=== PATIENT | male | born 1960 | race Caucasian/White ===

== ENCOUNTER 2017-02-23 18:26 | Inpatient (IN) | payer MEDICARE, OTHER ==
[~2017-02-23 18:26] MED LIST: METOPROLOL TARTRATE 5 MG/5 ML VIAL IVP ONE
[2017-02-23] MEDS ORDERED: HEPARIN SODIUM,PORCINE 5,000 UNIT/ML 1 ML VIAL IV ONE (18:28)
[2017-02-23] MEDS ORDERED: SODIUM CHLORIDE 0.9% 1,000 ML IV STA (18:28)
[2017-02-23] MEDS ORDERED: HEPARIN SODIUM,PORCINE 5,000 UNIT/ML 1 ML VIAL IV PRN (18:28)
[2017-02-23] MEDS ORDERED: ASPIRIN 81 MG CHEW PO STA (18:28)
[2017-02-23] MEDS ORDERED: NITROGLYCERIN SL TABS 0.4 MG TAB SUBLINGUAL PRN ×2 (18:28→19:57)
[2017-02-23] MEDS ORDERED: MORPHINE SULFATE 4 MG/ML SYRINGE IV PRN (18:28)
--- NOTE | 2017-02-23 18:31 | ED ---
General Adult HPI - General Stated complaint: STEMI Time Seen by Provider: 02/23/17 18:28 Source: RN notes reviewed, old records reviewed - History of Present Illness Initial comments: This is a 57-year-old male here for chest pain severe anterior chest pain. Patient's transfer to the ER for evaluation by EMS for positive EKG changes. Patient has history of high blood pressure, patient having severe anterior chest pain at this time shortness of breath and diaphoresis. - Related Data Home Medications Medication Instructions Recorded Confirmed Omeprazole 20 mg PO DAILY 02/23/17 02/23/17 Previous Rx's Medication Instructions Recorded Atorvastatin [Lipitor] 80 mg PO HS #90 tab 08/16/14 Nitroglycerin Sl Tabs [Nitrostat] 0.4 mg SUBLINGUAL Q5M PRN #25 tab 08/16/14 Aspirin 325 mg PO DAILY #30 tab 02/26/17 Atorvastatin [Lipitor] 80 mg PO HS #30 tab 02/26/17 LORazepam [Ativan] 1 mg PO TID PRN #20 tab 02/26/17 Lisinopril [Zestril] 10 mg PO DAILY #30 tab 02/26/17 Metoprolol Tartrate [Lopressor] 25 mg PO TID #90 tab 02/26/17 Prasugrel [Effient] 10 mg PO DAILY #30 tab 02/26/17 Allergies Allergy/AdvReac Type Severity Reaction Status Date / Time codeine Allergy Itching Verified 02/23/17 19:15 Review of Systems ROS Statement: Those systems with pertinent positive or pertinent negative responses have been documented in the HPI. ROS Other: All systems not noted in ROS Statement are negative. Past Medical History Past Medical History: GERD/Reflux, Hypertension, Pneumonia Additional Past Medical History / Comment(s): chronic back pain,MURMUR LONG TIME AGO, PSORIASES,PT STATED THAT HIS BP RUNS HIGH LIKE WHEN HE SEE'S THE DR OR ANXIOUS ABOUT SOMETHING BUT STATED NOT TAKING ANY MEDS FOR IT. 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 History of Any Multi-Drug Resistant Organisms: None Reported Past Surgical History: No Surgical Hx Reported Additional Past Surgical History / Comment(s): RT ROTATOR CUFF SX, LT KNEE SX AFTER [facility] Past Anesthesia/Blood Transfusion Reactions: No Reported Reaction Past Psychological History: No Psychological Hx Reported Smoking Status: Current every day smoker Past Alcohol Use History: None Reported Additional Past Alcohol Use History / Comment(s): STARTED SMOKING AT AGE 17- SMOKES 1 PPD DOWN FROM 2 PPD Past Drug Use History: Marijuana - Past Family History Father Family Medical History: Cancer Additional Family Medical History / Comment(s): MESOTHILIOMA Mother Family Medical History: Cancer Additional Family Medical History / Comment(s): LUNG CA General Exam General appearance: alert, in no apparent distress, anxious Head exam: Present: atraumatic, normocephalic, normal inspection Eye exam: Present: normal appearance, PERRL, EOMI. Absent: scleral icterus, conjunctival injection, periorbital swelling ENT exam: Present: normal exam, mucous membranes moist Neck exam: Present: normal inspection. Absent: tenderness, meningismus, lymphadenopathy Respiratory exam: Present: normal lung sounds bilaterally. Absent: respiratory distress, wheezes, rales, rhonchi, stridor Cardiovascular Exam: Present: regular rate, normal rhythm, normal heart sounds. Absent: systolic murmur, diastolic murmur, rubs, gallop, clicks GI/Abdominal exam: Present: soft, normal bowel sounds. Absent: distended, tenderness, guarding, rebound, rigid Extremities exam: Present: normal inspection, full ROM, normal capillary refill. Absent: tenderness, pedal edema, joint swelling, calf tenderness Back exam: Present: normal inspection Neurological exam: Present: alert, oriented X3, CN II-XII intact Psychiatric exam: Present: normal affect, normal mood Skin exam: Present: warm, dry, intact, normal color. Absent: rash Course Vital Signs 02/23/17 02/23/17 02/23/17 18:33 18:35 18:40 Temperature 98.0 F Pulse Rate 94 90 88 Respiratory 20 20 19 Rate Blood Pressure 123/67 119/76 124/84 O2 Sat by Pulse 98 97 Oximetry 02/23/17 02/23/17 02/23/17 18:45 18:49 18:55 Temperature Pulse Rate 85 89 91 Respiratory 20 20 20 Rate Blood Pressure 123/74 123/78 132/84 O2 Sat by Pulse 100 100 99 Oximetry - Reevaluation(s) Reevaluation #1: CODE STEMI was paged, cardiology evaluate patient in emergency room EKG Findings - EKG Comments: EKG Findings:: EKG shows normal sinus a rate of 91, [place] 166, QRS 84, QTC 423 Medical Decision Making - Medical Decision Making 57 male here for evaluation of chest pain, EKG positive for stabbing, 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
[2017-02-23 18:39] LABS: CH 31.3; CHCM 34.8; HCT 42.8 % (39.0-53.0); HDW 2.54; HGB 14.6 gm/dL (13.0-17.5); MCH 30.8 pg (25.0-35.0); MCHC 34.1 g/dL (31.0-37.0); MCV 90.3 fL (80.0-100.0); Mean Platelet Volume 7.7; RBC 4.74 m/uL (4.30-5.90); WBC 14.8 k/uL (3.8-10.6)
--- NOTE | 2017-02-23 18:41 | P.CRDCN ---
History of Present Illness Consult date: 02/23/17 History of present illness: This is a 57-year-old gentleman with history of ischemic heart disease with a previous stent placement in the right coronary artery in the setting of acute myocardial infarction done in July 2014. And had a 2 vessel disease at the time, with about 50-60% as of the circumflex. Patient has been on medical therapy and has been doing well. About an hour prior to arrival here patient started having chest pain associated with sweating and shortness of breath. Patient was brought by EMS to the hospital. EKG showed evidence of acute infero -posterior myocardial infarction. Patient is advised to have a cardiac catheterization for definitive diagnosis and further intervention as needed. Patient is also hypotensive. Review of Systems Not obtained Past Medical History Past Medical History: GERD/Reflux, Hypertension, Pneumonia Additional Past Medical History / Comment(s): chronic back pain,MURMUR LONG TIME AGO, PSORIASES,PT STATED THAT HIS BP RUNS HIGH LIKE WHEN HE SEE'S THE DR OR ANXIOUS ABOUT SOMETHING BUT STATED NOT TAKING ANY MEDS FOR IT. 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 History of Any Multi-Drug Resistant Organisms: None Reported Past Surgical History: No Surgical Hx Reported Additional Past Surgical History / Comment(s): RT ROTATOR CUFF SX, LT KNEE SX AFTER [facility] Past Anesthesia/Blood Transfusion Reactions: No Reported Reaction Past Psychological History: No Psychological Hx Reported Smoking Status: Current every day smoker Past Alcohol Use History: None Reported Additional Past Alcohol Use History / Comment(s): STARTED SMOKING AT AGE 17- SMOKES 1 PPD DOWN FROM 2 PPD Past Drug Use History: Marijuana - Past Family History Father Family Medical History: Cancer Additional Family Medical History / Comment(s): MESOTHILIOMA Mother Family Medical History: Cancer Additional Family Medical History / Comment(s): LUNG CA Medications and Allergies Allergies Allergy/AdvReac Type Severity Reaction Status Date / Time codeine Allergy Itching Verified 08/14/14 17:20 Physical Exam GENERAL EXAM: Patient is alert and oriented and appears to be in any severe distress. Sweaty HEENT: Normocephalic. Normal reaction of pupils, equal size, normal range of extraocular motion. No erythema or exudates in the throat. NECK: No masses, no nuchal rigidity. CHEST: No chest wall deformity. LUNGS: Diminished breath sounds HEART: S1 and S2 normal . Distant heart sounds ABDOMEN: Soft SKIN: No rashes CENTRAL NERVOUS SYSTEM: No focal deficits. EXTREMITIES: No cyanosis, clubbing or edema. Results Current Medications Generic Name Dose Route Start Last Admin Trade Name Freq PRN Reason Stop Dose Admin Aspirin 325 mg 02/24/17 09:00 Aspirin PO DAILY [facility] Atorvastatin Calcium 80 mg 02/24/17 09:00 Lipitor PO DAILY [facility] Heparin Sodium (Porcine) 0 unit 02/23/17 18:28 Heparin IV Q6HR PRN Low PTT Protocol Heparin Sodium/Dextrose 25,000 500 mls @ 0 mls/hr 02/23/17 18:30 unit/ IV Solution IV .Q0M PRINCESS Protocol 12 UNITS/KG/HR Sodium Chloride 1,000 mls @ 20 mls/hr 02/23/17 18:28 Saline 0.9% IV 02/24/17 18:27 .Q24H STA Morphine Sulfate 4 mg 02/23/17 18:28 Morphine Sulfate (Inj) IV Q5M PRN Chest Pain Nitroglycerin 0.4 mg 02/23/17 18:28 Nitrostat SUBLINGUAL Q5M PRN Chest Pain EKG Interpretations (text) Sinus rhythm with evidence of acute inferior posterior wall microinfarction Assessment and Plan (1) Old inferior wall myocardial infarction Status: Acute (2) STEMI (ST elevation myocardial infarction) Status: Acute (3) Exogenous obesity Status: Acute (4) Smoking Status: Acute Plan: Proceed with a primary cardiac catheterization and the possible stent placement. Meanwhile continue with the and the platelet agents and heparin.
[2017-02-23 18:47] LABS: ALT 53 U/L (21-72); AST 36 U/L (17-59); Alkaline Phosphatase 74 U/L (38-126); Anion Gap 10 mmol/L; Blood Urea Nitrogen 11 mg/dL (9-20); Calcium 8.8 mg/dL (8.4-10.2); Carbon Dioxide 22 mmol/L (22-30); Chloride 109 mmol/L (98-107); Glucose 122 mg/dL (74-99); Non-African American GFR(MDRD) 58 (>60 ml/min/1.73 sqM); Potassium 3.6 mmol/L (3.5-5.1); Sodium 141 mmol/L (137-145); Total Bilirubin 1.1 mg/dL (0.2-1.3); Total Protein 6.7 g/dL (6.3-8.2)
--- NOTE | 2017-02-23 18:53 | XR ---
EXAMINATION TYPE: XR chest 1V portable DATE OF EXAM: 02/23/2017 COMPARISON: 08/14/2014 HISTORY: Chest pain TECHNIQUE: Single frontal view of the chest is obtained. FINDINGS: There is no heart failure nor confluent pneumonic infiltrate. There is a small calcified g ranuloma in the left lower lobe. There are chest leads. Costophrenic angles are clear. IMPRESSION: No active cardiopulmonary disease. There is improved inspiration compared to old exam.
[2017-02-23 18:54] LABS: Prothrombin Time 10.3 sec (9.0-12.0)
[2017-02-23 18:58] LABS: Partial Thromboplastin Time 21.9 sec (22.0-30.0)
[2017-02-23] MEDS ORDERED: SODIUM CHLORIDE 0.9% 500 ML IV ONE (19:10)
[2017-02-23] MEDS ORDERED: HYDROmorphone 2 MG/ML 1 ML SYRINGE ONE (19:10)
[2017-02-23] MEDS ORDERED: HYDROmorphone 2 MG/ML 1 ML SYRINGE IV ONE (19:13)
[2017-02-23] MEDS ORDERED: LIDOCAINE 2% INJ 20 MG/ML SQ ONE (19:15)
[2017-02-23] MEDS ORDERED: BIVALIRUDIN BOLUS 250 MG/50 ML IV ONE (19:25)
[2017-02-23] MEDS ORDERED: METOPROLOL TARTRATE 5 MG/5 ML VIAL IVP ONE (19:26)
[2017-02-23] MEDS ORDERED: BIVALIRUDIN 250 MG in SODIUM CHLORIDE 0.9% 50 ML IV ONE (19:26)
--- NOTE | 2017-02-23 19:37 | P.PCN ---
Date of Procedure: 02/23/17 Preoperative Diagnosis: Acute inferior wall NM Postoperative Diagnosis: Total occlusion of the RCA and moderate stable disease in the circumflex Procedure(s) Performed: Left heart catheterization without left ventriculography Implants: Indications for Procedure: Operative Findings: Description of Procedure: HISTORY: This is a 57-year-old gentleman with history of previous inferior wall NM for which he had a stent placement in 2015 is admitted through the emergency room with prolonged chest pain and evidence of inferior wall NM. Patient is advised to have a cardiac cath with the intention of primary intervention. CONSENT:I have discussed the risks, benefits and alternative therapies for the above-mentioned procedure and for both sedation/analgesia as well as necessary blood product administration, if indicated, as they pertain to this patient. The patient has indicated understanding and acceptance of the risks and procedures discussed. PROCEDURE: Patient was brought to the lab in a fasting state. Patient was given some IV sedation. The right groin is infiltrated with lidocaine and right femoral artery was entered using Seldinger technique. A 6-Georgian catheter was left in place and selective coronary arteriography and left ventriculography was performed. Patient tolerated the procedure well. Femoral angiogram was performed and Angio-Seal was applied for hemostasis. No immediate complications were noted and patient was transferred to [facility] in a stable condition Conscious Sedation: Patient is given IV Dilaudid 1 mg. Patient received sedation in the emergency room. The duration is about 15 minutes SELECTIVE CORONARY ARTERIOGRAPHY: LEFT MAIN: Normal length with mild distal disease before the origin of the circumflex and LAD. THE LEFT ANTERIOR DESCENDING CORONARY ARTERY: This is a fair caliber vessel giving rise to 2 small diagonal and septal branches. The LAD has mild diffuse disease without any significant focal lesions. He is a dominant vessel which wraps around the apex. THE LEFT CIRCUMFLEX AND IS CORONARY ARTERY: This is small nondominant vessel with intermittent disease in the proximal portion THE RIGHT CORONARY ARTERY: , Totally occluded within the stent in the proximal area LEFT VENTRICULOGRAPHY: Performed FINAL IMPRESSION: Total occlusion of the RCA. Moderate disease in the circumflex. Mild disease in the LAD PLAN: Stent placement of the RCA. Being done by Dr. Hawkins PROGNOSIS: Guarded
[2017-02-23 19:40] LABS: Nucleated Red Blood Cells 0 /100 WBC (0-0); Total Cells Counted 100
[2017-02-23 19:41] LABS: Large Platelets Present; Manual Review Performed; RBC Morphology Normal
[2017-02-23 19:45] LABS: Creatine Kinase MB 1.9 ng/mL (0.0-2.4)
[2017-02-23] MEDS ORDERED: PRASUGREL 10 MG TAB ONE (19:46)
[2017-02-23] MEDS ORDERED: IOHEXOL 350 MG/ML 125ML BOTTLE INJ ONE (19:48)
[2017-02-23] MEDS ORDERED: PRASUGREL 10 MG TAB PO ONE (19:48)
[2017-02-23] MEDS ORDERED: ZOLPIDEM 5 MG TAB PO PRN (19:57)
[2017-02-23] MEDS ORDERED: RX INFO: IV CONTRAST WAS GIVEN 1 EACH MISC MISCELLANE PRN (19:57)
[2017-02-23] MEDS ORDERED: MAG HYDROX/AL HYDROX/SIMETH 30 ML CUP PO PRN (19:57)
[2017-02-23] MEDS ORDERED: ATROPINE SULFATE 0.1 MG/ML 10ML SYRINGE IV PRN (19:57)
[2017-02-23] MEDS ORDERED: SODIUM CHLORIDE 0.9% 1,000 ML IV SCH (20:00)
[2017-02-23 20:36] LABS: Glucose,Whole Blood 120 mg/dL (75-99)
[2017-02-23] MEDS: HEPARIN SODIUM,PORCINE/D5W PMX 25,000 UNIT in DEXTROSE/WATER 1 500ML.BAG IV SCH (21:31)
[2017-02-23] MEDS: ATORVASTATIN 80 MG TAB PO SCH (22:24)
[2017-02-24 01:42] LABS: Creatine Kinase MB 89.5 ng/mL (0.0-2.4); Troponin I 39.9 ng/mL (0.000-0.034)
[2017-02-24 05:18] LABS: Basophils # (A) 0.1 k/uL (0-0.2); Basophils % (A) 1 %; CHCM 33.7; Eosinophils # (A) 0.1 k/uL (0-0.7); Eosinophils % (A) 1 %; HCT 40.3 % (39.0-53.0); HGB 13.4 gm/dL (13.0-17.5); Luc # (Auto) 0.21; Luc % (Auto) 2; Lymphocytes % (A) 29 %; MCH 30.7 pg (25.0-35.0); MCHC 33.2 g/dL (31.0-37.0); MCV 92.5 fL (80.0-100.0); Mean Platelet Volume 7.8; Monocytes # (A) 0.6 k/uL (0-1.0); Monocytes % (A) 5 %; Neutrophils # (A) 6.4 k/uL (1.3-7.7); Neutrophils % (A) 62 %; RBC 4.36 m/uL (4.30-5.90); RDW 14.3 % (11.5-15.5); WBC 10.2 k/uL (3.8-10.6); WBC (Perox) 10.66
[2017-02-24 05:27] LABS: Cholesterol 140 mg/dL (<200); Glucose 105 mg/dL (74-99)
[2017-02-24 05:28] LABS: Anion Gap 9 mmol/L; Blood Urea Nitrogen 10 mg/dL (9-20); Calcium 8.5 mg/dL (8.4-10.2); Carbon Dioxide 21 mmol/L (22-30); Chloride 110 mmol/L (98-107); HDL Cholesterol 34 mg/dL (40-60); Non-African American GFR(MDRD) >60 (>60 ml/min/1.73 sqM); Potassium 3.7 mmol/L (3.5-5.1); Sodium 140 mmol/L (137-145)
[2017-02-24] MEDS ORDERED: Potassium Replacement Protocol 1 EACH MISC MISCELLANE PRN (05:37)
[2017-02-24] MEDS ORDERED: POTASSIUM CHLORIDE ER 20 MEQ TAB.ER PO SCH (06:00)
[2017-02-24] MEDS: ASPIRIN 325 MG TAB PO SCH (08:51)
[2017-02-24] MEDS: LISINOPRIL 10 MG TAB PO SCH (08:52)
[2017-02-24] MEDS: PRASUGREL 10 MG TAB PO SCH (08:52)
[2017-02-24] MEDS: PANTOPRAZOLE 40 MG TABLET PO SCH (08:52)
[2017-02-24] MEDS ORDERED: METOPROLOL TARTRATE 25 MG TAB PO SCH (09:00)
[2017-02-24] MEDS ORDERED: ATORVASTATIN 80 MG TAB PO SCH (09:00)
[2017-02-24] MEDS ORDERED: Magnesium Replacement Protocol 1 EACH MISC MISCELLANE PRN (13:14)
[2017-02-24] MEDS: MAGNESIUM SULFATE-D5W PMX 1 GM in DEXTROSE/WATER 1 100ML.BAG IVPB SCH ×2 (14:26→15:43)
[2017-02-24] MEDS: METOPROLOL TARTRATE 25 MG TAB PO SCH ×2 (15:56→21:01)
[2017-02-24] MEDS: HEPARIN SODIUM,PORCINE/D5W PMX 25,000 UNIT in DEXTROSE/WATER 1 500ML.BAG IV SCH (17:34)
--- NOTE | 2017-02-24 17:34 | ECHOF ---
Referral Reason:stemi MEASUREMENTS -------- HEIGHT: 152.4 cm WEIGHT: 103.9 kg BP: 151/55 RVIDd: 2.7 cm (< 3.3) IVSd: 1.2 cm (0.6 - 1.1) LVIDd: 3.9 cm (3.9 - 5.3) LVPWd: 1.7 cm (0.6 - 1.1) IVSs: 1.5 cm LVIDs: 3.6 cm LVPWs: 1.4 cm LA Diam: 3.6 cm (2.7 - 3.8) Ao Diam: 2.8 cm (2.0 - 3.7) AV Cusp: 2.1 cm (1.5 - 2.6) LA Diam: 3.9 cm (2.7 - 3.8) MV EXCURSION: 16.312 mm (> 18.000) MV EF SLOPE: 119 mm/s (70 - 150) EPSS: 0.4 cm MV E Josiah: 0.83 m/s MV DecT: 134 ms MV A Josiah: 0.53 m/s MV E/A Ratio: 1.57 RAP: 5.00 mmHg RVSP: 20.60 mmHg FINDINGS -------- Sinus rhythm. This was a techncally difficult study with suboptimal views, , Definity utilized for enhancement of images. There is mild concentric left ventricular hypertrophy. Overall left ventricular systolic function is normal with, an EF between 55 - 60 %. Inferior Hypokinesis The right ventricle is normal in size. The left atrial size is normal. The right atrial size is normal. 1.5MG OF DEFINITY UTLIZED: 2 OR MORE WALL SEGMENTS NOT VISUALIZED. There is mild aortic valve sclerosis. There is no evidence of aortic regurgitation. The mitral valve leaflets are mildly thickened. Mild mitral regurgitation is present. Mild tricuspid regurgitation present. There is no evidence of pulmonary hypertension. The right ventricular systolic pressure, as measured by Doppler, is 20.60mmHg. There is no pulmonic regurgitation present. The aortic root size is normal. There is no pericardial effusion. CONCLUSIONS -------- 1. This was a techncally difficult study with suboptimal views, , Definity utilized for enhancement of images. 2. There is no evidence of pulmonary hypertension. 3. The right ventricular systolic pressure, as measured by Doppler, is 20.60mmHg. 4. There is mild concentric left ventricular hypertrophy. 5. Overall left ventricular systolic function is normal with, an EF between 55 - 60 %. 6. Inferior Hypokinesis 7. 1.5MG OF DEFINITY UTLIZED: 2 OR MORE WALL SEGMENTS NOT VISUALIZED. 8. There is mild aortic valve sclerosis. 9. The mitral valve leaflets are mildly thickened. 10. Mild mitral regurgitation is present. 11. Mild tricuspid regurgitation present. SILK SCREEN PRINTER HELPER: Daylin Veliz RDCS
--- NOTE | 2017-02-24 20:11 | P.PN ---
Subjective Principal diagnosis: STEMI This is a 57-year-old gentleman with history of ischemic heart disease with a previous stent placement in the right coronary artery in the setting of acute myocardial infarction done in July 2014. And had a 2 vessel disease at the time, with about 50-60% as of the circumflex. Patient has been on medical therapy and has been doing well. About an hour prior to arrival here patient started having chest pain associated with sweating and shortness of breath. Patient was brought by EMS to the hospital. EKG showed evidence of acute infero-posterior myocardial infarction. Patient is advised to have a cardiac catheterization for definitive diagnosis and further intervention as needed. Objective - Vital Signs Vital signs: Vital Signs Temp 97.8 F 02/24/17 16:00 Pulse 77 02/24/17 16:00 Resp 18 02/24/17 16:00 BP 125/74 02/24/17 16:00 Pulse Ox 95 02/24/17 16:46 Intake & Output 02/24/17 02/24/17 02/25/17 06:59 18:59 06:59 Intake Total 2092 180 Output Total 700 850 Balance 1392 -670 Weight 102.2 kg Intake: IV 1592 80 Sodium Chloride 0.9% 1, 900 000 ml @ 100 mls/hr IV . Q10H PRINCESS Rx#:[id number] Sodium Chloride 0.9% 1, 80 000 ml @ 20 mls/hr IV . Q24H STA Rx#:[id number] Oral 500 100 Output: Urine 700 850 Other: Voiding Method Urinal Urinal - Constitutional General appearance: Present: no acute distress - Respiratory Respiratory: bilateral: CTA - Cardiovascular Rhythm: regular Heart sounds: normal: S1, S2 - Labs CBC & Chem 7: 02/24/17 04:55 02/24/17 04:55 Labs: Abnormal Lab Results - Last 24 Hours (Table) 02/23/17 02/24/17 02/24/17 Range/Units 20:34 00:41 04:55 Chloride 110 H (98-107) mmol/L Carbon Dioxide 21 L (22-30) mmol/L Glucose 105 H (74-99) mg/dL POC Glucose (mg/dL) 120 H (75-99) mg/dL Total Creatine Kinase 2175 H (55-170) U/L CK-MB (CK-2) 89.5 H* (0.0-2.4) ng/mL Troponin I 39.900 H* (0.000-0.034) ng/mL Triglycerides 252 H (<150) mg/dL HDL Cholesterol 34 L (40-60) mg/dL Assessment and Plan Plan: Acute inferior STEMI and s/p PCI of the RCA. Will continue the current treatment and follow up.
--- NOTE | 2017-02-24 20:31 | PTCA ---
DATE OF SERVICE: 02/23/17 PERFORMING PHYSICIAN: Moises Lopez M.D., court usher. PROCEDURE PERFORMED: Successful stenting of the mid right coronary artery using 2.75 x 16 mm Promus Premier drug eluting stent which was dilated using 3 mm noncompliant balloon with good angiographic results. Aspiration thrombectomy from the mid RCA. INDICATIONS: This is a pleasant 57 -year-old gentleman who presented to the hospital with chest discomfort and was diagnosed with acute anterior ST elevation myocardial infarction. He underwent an emergent heart catheterization by Dr. Menendez and was found to have very late stent thrombosis involving the mid RCA. The decision was made towards percutaneous coronary intervention emergently. APPROACH: Right common femoral artery. COMPLICATIONS: None. LEVEL OF SEDATION: Moderate. SEDATION LENGTH: 27 minutes. PROCEDURE DESCRIPTION: After diagnostic heart catheterization was performed by Dr. Menendez and after review of the angiogram, we decided to proceed with intervention on the RCA. Anticoagulation was initiated using Angiomax. Subsequently, I took JR4 guide and RCA was engaged. Whisper wire was used to cross the acute total occlusion of the mid RCA and the wire was positioned in the distal RCA. Subsequently I did aspiration thrombectomy and I was able to extract thrombus from the mid RCA. Subsequently, I did stenting of the lesion using 2.75 x 16 mm Promus Premier drug eluting stent where the stent was positioned under fluoroscopy guidance and it was deployed under 18 atmospheres for 30 seconds. Subsequently, I post dilated that stent using 3 mm noncompliant balloon. The following angiogram showed good angiographic results with perforation and without dissection with good flow. The procedure was completed without any complications. POSTPROCEDURE MANAGEMENT: 1. Dual antiplatelet therapy. 2. Risk factor medications. 3. Follow-up with the patient. CHIN
[2017-02-24] MEDS: ATORVASTATIN 80 MG TAB PO SCH (21:01)
[2017-02-25 06:35] LABS: Mean Platelet Volume 7.9
[2017-02-25] MEDS: ASPIRIN 325 MG TAB PO SCH (09:29)
[2017-02-25] MEDS: PANTOPRAZOLE 40 MG TABLET PO SCH (09:29)
[2017-02-25] MEDS: LISINOPRIL 10 MG TAB PO SCH (09:29)
[2017-02-25] MEDS: METOPROLOL TARTRATE 25 MG TAB PO SCH ×3 (09:29→20:19)
[2017-02-25] MEDS: PRASUGREL 10 MG TAB PO SCH (09:30)
--- NOTE | 2017-02-25 18:06 | HP ---
CHIEF COMPLAINT: Chest pain. HISTORY OF PRESENT ILLNESS: This 57-year-old gentleman with the past medical history of multiple medical problems including GERD, myocardial infarction, being followed by Dr. De Paz in the outpatient setting was admitted with severe chest pain. The chest pain was felt in the anterior part of the chest which was radiating across went up and subsequently the patient had pain across the neck and the patient was admitted for further evaluation and treatment. The patient came to [facility] Emergency Room and was found to have significant ST elevation inferior. Patient admitted and patient underwent a cardiac catheterization. Cardiac cath showed total occlusion of the RCA with mild stable disease in the circumflex. RCA stent was deployed and the patient monitored closely in the ICU. There is no history of any fevers. No history of headache, loss of consciousness, seizures. PAST MEDICAL HISTORY: History of GERD, myocardial infarction, pneumonia. MEDICATIONS PRIOR TO ADMISSION: 1. Omeprazole 20 mg p.o. daily. 2. Lipitor 80 mg p.o. q.h.s. 3. Nitro 0.4 sublingual p.r.n. 4. Metoprolol 25 mg p.o .daily. 5. Vasotec 5 mg p.o. daily. ALLERGIES: CODEINE. FAMILY HISTORY: History of cancer, mesothelioma. SOCIAL HISTORY: History of smoking, history of THC. REVIEW OF SYSTEMS: ENT: No diminished hearing or vision. CARDIOVASCULAR: No angina or palpitation. RESPIRATORY: As mentioned earlier. GI: No nausea. : No dysuria. NERVOUS SYSTEM: No numbness or weakness. IMMUNOLOGY/ALLERGY: No asthma, hayfever. MUSCULOSKELETAL: As mentioned earlier. HEMATOLOGY: No history of anemia. ENDOCRINE: No history of diabetes or hypothyroidism. CONSTITUTIONAL: As mentioned earlier. PSYCHIATRIC: As mentioned earlier. PHYSICAL EXAMINATION: Alert and oriented x3. Pulse 77, blood pressure 135/74, respirations 18, temperature 97.8, pulse ox 94% on room air. HEENT: Conjunctivae normal. NECK: No jugular venous distention. CARDIOVASCULAR: S1/.S2. RESPIRATIONS: Diminished breath sounds, especially at the bases. Scattered rhonchi and crackles. ABDOMEN: Soft, nontender. LEGS: No edema, no swelling. NERVOUS SYSTEM: No focal deficits.. LABS: WBC 14.8. Troponin 39.9. Triglycerides 252. ASSESSMENT: 1. Acute ST segment elevation inferior wall myocardial infarction status post cardiac catheterization and right coronary artery stenting. 2. Troponin 39. 3. Increased WBC, possibly reactive. 4. History of gastroesophageal reflux disease. 5. History of myocardial infarction. 6. History of pneumonia. RECOMMENDATIONS AND DISCUSSION: Recommend to continue current medication, continue to monitor, continue symptomatic treatment. Otherwise, continue with dual antiplatelet, continue with EVANGELINA inhibitors, monitor blood pressure closely , repeat labs, DVT prophylaxis, beta blockers. The patient is on Effient. Prognosis guarded because of multiple complex medical issues. Further recommendations to follow. Discussed with the patient. The patient will be asked to follow up with his primary physician closely after discharge. CHIN
[2017-02-25] MEDS: ATORVASTATIN 80 MG TAB PO SCH (20:19)
[2017-02-26 06:34] LABS: Mean Platelet Volume 7.6
[2017-02-26] MEDS: PRASUGREL 10 MG TAB PO SCH (09:41)
[2017-02-26] MEDS: METOPROLOL TARTRATE 25 MG TAB PO SCH (09:41)
[2017-02-26] MEDS: ASPIRIN 325 MG TAB PO SCH (09:41)
[2017-02-26] MEDS: LISINOPRIL 10 MG TAB PO SCH (09:41)
[2017-02-26] MEDS: PANTOPRAZOLE 40 MG TABLET PO SCH (09:41)
[2017-02-26 10:27] VITALS: RESP 20; TEMP 97.1
--- NOTE | 2017-02-26 10:57 | P.PN ---
Subjective Principal diagnosis: STEMI This is a pleasant 57-year-old gentleman with a known CAD and prior stenting of the RCA, presented to the hospital with a chest discomfort and was diagnosed with acute inferior ST elevation myocardial infarction. He underwent an emergent heart catheterization by Dr. Menendez and was found to have very late stent thrombosis. He underwent successful stenting of the RCA with a good angiographic results and without any complication. I'll follow-up with him today, he denies having any chest pain or discomfort or difficulty breathing or heart racing or fluttering. He continues to be on dual antiplatelet therapy as well as a statin. From the cardiovascular standpoint of view, the patient can be discharged home Objective - Vital Signs Vital signs: Vital Signs Temp 97.1 F L 02/26/17 08:00 Pulse 74 02/26/17 08:47 Resp 20 02/26/17 08:00 BP 131/81 02/26/17 08:47 Pulse Ox 98 02/26/17 08:47 Intake & Output 02/25/17 02/26/17 02/26/17 18:59 06:59 18:59 Intake Total 180 300 180 Output Total 550 Balance 180 -250 180 Weight 101.7 kg Intake: Oral 180 300 180 Output: Urine 550 Other: Voiding Method Urinal # Voids 1 2 - Constitutional General appearance: Present: no acute distress - Respiratory Respiratory: bilateral: CTA - Cardiovascular Rhythm: regular Heart sounds: normal: S1, S2 - Labs CBC & Chem 7: 02/26/17 06:05 02/24/17 04:55 Assessment and Plan Plan: Acute inferior STEMI and s/p PCI of the RCA. Will continue the current treatment and follow up. Continue dual antiplatelet therapy and statin. The patient can be discharged home
[2017-02-26 11:37] VITALS: BP 131/85; PULSE 74
--- NOTE | 2017-02-26 14:18 | PN ---
DATE OF SERVICE: 02/25/2017 This 57-year-old gentleman, who was admitted with acute anterior myocardial infarction, is being closely monitored. No chest pain, no palpitations. No fever. On exam, alert and oriented x3. Pulse is 73, blood pressure 140/90, respirations 18, temperature 97.1, pulse ox 94% on room air. HEENT: Conjunctivae normal. NECK: No jugular venous distention. CARDIOVASCULAR: S1, S2. RESPIRATORY: Breath sounds diminished at the bases. No rhonchi, no crackles. ABDOMEN: Soft, nontender. LEGS: No edema, no swelling. NERVOUS SYSTEM: No focal deficits. LABS: WBC 250, other labs are noted. ASSESSMENT: 1. Acute inferior wall ST-segment elevation myocardial infarction, status post cardiac catheterization and stenting of the RCA. 2. Troponin 39. 3. Increased WBC, possibly reactive. 4. History of gastroesophageal reflux disease. 5. History of myocardial infarction. 6. History of pneumonia. RECOMMENDATIONS AND DISCUSSION: I recommend to continue the current medications, continue symptomatic treatment. Continue with antiplatelet agents and as well as beta-blockers. Guarded prognosis. Further recommendations to follow. MTDD
--- NOTE | 2017-02-26 19:10 | P.DS ---
Providers Date of admission: 02/23/17 18:28 Attending physician: Fallon Mercado Consults: 02/23/17 18:28 Consult Physician Urgent Consulting Provider: Ayaka Menendez Consult Reason/Comments: cp Do you want consulting provider notified?: Yes 02/23/17 19:57 Consult Physician Routine Consulting Provider: [facility] Consult Reason/Comments: Post Interventional patient Do you want consulting provider notified?: Already Contacted Primary care physician: [facility] Course: This 57-year-old gentleman was admitted with acute inferior microinfarction. Patient underwent cardiac catheterization and stenting of the RCA. Improved significantly. On exam vitals stable S1-S2 normal. Respiratory system normal. Abdomen soft nontender. Final diagnosis 1. Acute inferior wall ST segment elevation [place] status post cardiac And stenting of the RCA 2. Increased obesity possibly reactive 3. History of GERD Patient Condition at Discharge: Critical Plan - Discharge Summary New Discharge Prescriptions: New Aspirin 325 mg PO DAILY #30 tab Atorvastatin [Lipitor] 80 mg PO HS #30 tab Lisinopril [Zestril] 10 mg PO DAILY #30 tab Metoprolol Tartrate [Lopressor] 25 mg PO TID #90 tab Prasugrel [Effient] 10 mg PO DAILY #30 tab LORazepam [Ativan] 1 mg PO TID PRN #20 tab PRN Reason: Anxiety Continue Atorvastatin [Lipitor] 80 mg PO HS #90 tab Nitroglycerin Sl Tabs [Nitrostat] 0.4 mg SUBLINGUAL Q5M PRN #25 tab PRN Reason: Chest Pain Omeprazole 20 mg PO DAILY Discontinued Metoprolol Tartrate [Lopressor] 25 mg PO DAILY Enalapril [Vasotec] 5 mg PO DAILY Discharge Medication List Atorvastatin [Lipitor] 80 mg PO HS #90 tab 08/16/14 [Rx] Nitroglycerin Sl Tabs [Nitrostat] 0.4 mg SUBLINGUAL Q5M PRN #25 tab 08/16/14 [Rx ] Omeprazole 20 mg PO DAILY 02/23/17 [History] Aspirin 325 mg PO DAILY #30 tab 02/26/17 [Rx] Atorvastatin [Lipitor] 80 mg PO HS #30 tab 02/26/17 [Rx] LORazepam [Ativan] 1 mg PO TID PRN #20 tab 02/26/17 [Rx] Lisinopril [Zestril] 10 mg PO DAILY #30 tab 02/26/17 [Rx] Metoprolol Tartrate [Lopressor] 25 mg PO TID #90 tab 02/26/17 [Rx] Prasugrel [Effient] 10 mg PO DAILY #30 tab 02/26/17 [Rx] Follow up Appointment(s)/Referral(s): Liberty De Paz MD [Primary Care Provider] - 02/28/17 10:00 am Iván Fernandes MD [STAFF PHYSICIAN] - 03/05/17 10:45 am Patient Instructions/Handouts: Heart Healthy Diet (DC) Activity/Diet/Wound Care/Special Instructions: diet cardiac act limited till f/u no smoking Discharge Disposition: HOME SELF-CARE
== END 2017-02-26 12:44 | disposition home or self-care (01) | DRG 247 ==
LOC: EC 18:26 → 6ICU 18:28 → 6SEL 02-24 10:44
PROVIDERS: ADMIT Hospitalist; ATTEND Hospitalist
PROC: 02C03ZZ Extirpation of Matter from Coronary Artery, One Artery, Percutaneous Approach (ICD-10-PCS; 2017-02-23)
PROC: 027034Z Dilation of Coronary Artery, One Artery with Drug-eluting Intraluminal Device, Percutaneous Approach (ICD-10-PCS; 2017-02-23)
PROC: 4A023N7 Measurement of Cardiac Sampling and Pressure, Left Heart, Percutaneous Approach (ICD-10-PCS; principal; 2017-02-23 18:56)
PROC: B2111ZZ Fluoroscopy of Multiple Coronary Arteries using Low Osmolar Contrast (ICD-10-PCS; principal; 2017-02-23 18:56)
DX: I21.19 ST elevation (STEMI) myocardial infarction involving other coronary artery of inferior wall (principal); I25.82 Chronic total occlusion of coronary artery; I10 Essential (primary) hypertension; F17.200 Nicotine dependence, unspecified, uncomplicated; I25.10 Atherosclerotic heart disease of native coronary artery without angina pectoris; I25.2 Old myocardial infarction; K21.9 Gastro-esophageal reflux disease without esophagitis; Z79.82 Long term (current) use of aspirin; Z79.899 Other long term (current) drug therapy; Z80.1 Family history of malignant neoplasm of trachea, bronchus and lung; Z87.01 Personal history of pneumonia (recurrent); Z95.5 Presence of coronary angioplasty implant and graft; Z88.5 Allergy status to narcotic agent
CPT/HCPCS: 36415; 71010; 80048; 80053; 80061; 82550; 82553; 83735; 84484; 85025; 85027; 85049; 85610; 85730; 93005; 93306

== ENCOUNTER → 2017-03-13 | Outpatient (CLI) | payer MEDICARE, OTHER ==
--- NOTE | 2017-03-13 12:04 | MR ---
MR lumbar spine wo con Unspecified thoracic, thoracolumbar and lumbosacral Multiplanar, multiecho imaging of the lumbar spine was obtained without contrast on a 3 Chantel magnet. REFERENCE: Previous study dated 11/18/2009. FINDINGS: Paraspinal soft tissues are normal. Vertebral body height and alignment are maintained. Cord signal is maintained. The conus ends normally at the level of the L1-2 disc. At T12-L1, no definite abnormality is seen. At L1-2, there is minor hypertrophic change and capsulitis within the facets. At L2-3, no definite abnormality is seen. At L3-4, there is a diffuse disc displacement. Intervertebral foramina are mildly narrowed bilaterall y. There is mild hypertrophic change in the facets. There is mild trefoiling of the thecal sac. At L4-5, there is disc space loss. There is fatty endplate change. There is mild narrowing of the rig ht intervertebral foramina. There is a diffuse disc displacement. There is mild hypertrophic change i n the facets. There is mild to moderate central canal stenosis. At L5-S1, there is disc space loss. There is a diffuse disc displacement. This hypertrophic changes i n the facets. IMPRESSION: 1. DIFFUSE DEGENERATIVE DISC DISEASE AND FACET ARTHROPATHY. 2. MULTILEVEL INTERVERTEBRAL FORAMINAL NARROWING. 3. MILD TO MODERATE CENTRAL CANAL STENOSIS, L4-5.
== END | disposition home or self-care (01) ==
LOC: RADMRIMAIN 11:09
PROVIDERS: ATTEND Family Medicine
DX: M48.06 Spinal stenosis, lumbar region (principal); M99.73 Connective tissue and disc stenosis of intervertebral foramina of lumbar region; M51.36 Other intervertebral disc degeneration, lumbar region; M12.88 Other specific arthropathies, not elsewhere classified, other specified site
CPT/HCPCS: 72148

== ENCOUNTER 2017-05-25 19:30 | Emergency (ER) | payer MEDICARE, OTHER ==
[2017-05-25 19:38] VITALS: RESP 16
[2017-05-25 19:54] LABS: Glucose,Whole Blood 110 mg/dL (75-99)
[2017-05-25] MEDS ORDERED: SODIUM CHLORIDE 0.9% 1,000 ML IV STA (20:01)
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
[2017-05-25 20:17] LABS: CH 30.8; CHCM 33.3; HCT 48.1 % (39.0-53.0); HDW 2.36; HGB 15.3 gm/dL (13.0-17.5); MCH 29.6 pg (25.0-35.0); MCHC 31.8 g/dL (31.0-37.0); MCV 93.2 fL (80.0-100.0); Mean Platelet Volume 7.7; RBC 5.16 m/uL (4.30-5.90); WBC 13.6 k/uL (3.8-10.6); WBC (Perox) 13.19
--- NOTE | 2017-05-25 20:19 | XR ---
EXAMINATION TYPE: XR chest 2V DATE OF EXAM: 05/25/2017 COMPARISON: 02/23/2017 HISTORY: Syncope TECHNIQUE: Frontal and lateral views of the chest are obtained. FINDINGS: Heart and mediastinum are normal. There is a small calcified granuloma in the left midlung . There is no pleural effusion. There is no heart failure. Bony thorax is intact. There are chest alysia ds. IMPRESSION: Calcified granuloma in the left lower lobe. No active cardiopulmonary disease. No change .
[2017-05-25 20:33] LABS: Partial Thromboplastin Time 22.4 sec (22.0-30.0); Prothrombin Time 10.1 sec (9.0-12.0)
[2017-05-25 20:36] LABS: ALT 71 U/L (21-72); AST 40 U/L (17-59); Alkaline Phosphatase 81 U/L (38-126); Anion Gap 9 mmol/L; Blood Urea Nitrogen 10 mg/dL (9-20); Calcium 9.2 mg/dL (8.4-10.2); Carbon Dioxide 24 mmol/L (22-30); Chloride 105 mmol/L (98-107); Glucose 110 mg/dL (74-99); Non-African American GFR(MDRD) >60 (>60 ml/min/1.73 sqM); Potassium 4.1 mmol/L (3.5-5.1); Sodium 138 mmol/L (137-145); Total Bilirubin 0.9 mg/dL (0.2-1.3)
[2017-05-25 20:51] LABS: Add Differential Manual Differential; Creatine Kinase 509 U/L (55-170)
[2017-05-25 20:53] LABS: Manual Review Performed; Nucleated Red Blood Cells 0 /100 WBC (0-0); RBC Morphology Normal; Total Cells Counted 100
[2017-05-25 20:54] LABS: Reactive Lymphocytes Present
[2017-05-25] MEDS ORDERED: SODIUM CHLORIDE 0.9% 1,000 ML IV ONE (21:00)
[2017-05-25 21:03] LABS: Troponin I <0.012 ng/mL (0.000-0.034)
--- NOTE | 2017-05-25 21:35 | CT ---
EXAMINATION TYPE: CT brain wo con DATE OF EXAM: 05/25/2017 COMPARISON: NONE HISTORY: Syncopal episode today. CT DLP: 1000.30 mGycm Automated exposure control for dose reduction was used. FINDINGS: Multiple axial sections were obtained of the brain without contrast. The ventricles have normal size. There is no mass effect nor midline shift. There is no sign of intra cranial hemorrhage. The calvarium is intact. IMPRESSION: NEGATIVE CT SCAN OF THE BRAIN.
[2017-05-25 21:59] VITALS: BP 105/69; PULSE 67; TEMP 98.1
== END 2017-05-25 21:58 | disposition home or self-care (01) ==
LOC: EC 19:30
DX: R55 Syncope and collapse (principal); E86.0 Dehydration; I10 Essential (primary) hypertension; K21.9 Gastro-esophageal reflux disease without esophagitis; F17.200 Nicotine dependence, unspecified, uncomplicated; Z88.5 Allergy status to narcotic agent; Z79.899 Other long term (current) drug therapy
CPT/HCPCS: 36415; 70450; 71020; 80053; 82550; 82553; 83735; 84484; 85025; 85379; 85610; 85730; 93005; 96360; 96361; 99285

== ENCOUNTER 2018-02-06 18:21 | Emergency (ER) | payer MEDICARE, OTHER ==
[2018-02-06] MEDS ORDERED: SODIUM CHLORIDE 0.9% 1,000 ML IV STA (18:27)
[2018-02-06 18:32] VITALS: PULSE 99
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
[2018-02-06 19:00] LABS: Basophils % (A) 0 %; Eosinophils # (A) 0.2 k/uL (0-0.7); Eosinophils % (A) 2 %; HCT 41.3 % (39.0-53.0); HGB 14.4 gm/dL (13.0-17.5); Lymphocytes # (A) 3.4 k/uL (1.0-4.8); Lymphocytes % (A) 33 %; MCH 30.7 pg (25.0-35.0); MCHC 34.8 g/dL (31.0-37.0); MCV 88.3 fL (80.0-100.0); Mean Platelet Volume 7.3; Monocytes # (A) 0.5 k/uL (0-1.0); Monocytes % (A) 5 %; Neutrophils % (A) 58 %; Platelet Count 277 k/uL (150-450); RBC 4.68 m/uL (4.30-5.90); RDW 13.4 % (11.5-15.5); WBC 10.3 k/uL (3.8-10.6)
[2018-02-06 19:12] LABS: ALT 40 U/L (21-72); AST 56 U/L (17-59); Albumin 4.3 g/dL (3.5-5.0); Alkaline Phosphatase 75 U/L (38-126); Amylase 70 U/L (30-110); Anion Gap 9 mmol/L; Blood Urea Nitrogen 12 mg/dL (9-20); Calcium 8.5 mg/dL (8.4-10.2); Carbon Dioxide 22 mmol/L (22-30); Chloride 105 mmol/L (98-107); Glucose 89 mg/dL (74-99); Lipase 101 U/L (23-300); Magnesium 1.9 mg/dL (1.6-2.3); Sodium 136 mmol/L (137-145); Total Bilirubin 1.7 mg/dL (0.2-1.3); Total Protein 7.4 g/dL (6.3-8.2)
[2018-02-06 19:16] LABS: Potassium 5.6 mmol/L (3.5-5.1)
[2018-02-06 19:18] LABS: Creatine Kinase 499 U/L (55-170)
[2018-02-06 19:31] LABS: Creatine Kinase MB 2.2 ng/mL (0.0-2.4); Troponin I <0.012 ng/mL (0.000-0.034)
[2018-02-06 20:03] VITALS: BP 114/72; RESP 20; TEMP 98.2
[2018-02-06 20:07] LABS: D-Dimer 0.42 mg/L FEU (<0.60); Partial Thromboplastin Time 23.2 sec (22.0-30.0); Prothrombin Time 10.2 sec (9.0-12.0)
--- NOTE | 2018-02-06 20:12 | XR ---
EXAMINATION: XR chest 2V DATE AND TIME: 02/06/2018 7:23 PM ORDERING PROVIDER: Crhistopher Umana MD CLINICAL INDICATION: Chest Pain TECHNIQUE: PA and lateral COMPARISON: 05/25/2017 DESCRIPTION: The lungs are clear, except for a 1 cm calcification in the left lower lung zone which is stable and consistent with healed granuloma. The pleural spaces are negative. The cardiac silhouette is not enlarged. The skeletal structures are intact without focal findings. The soft tissues are unremarkable. IMPRESSION: NO ACUTE PROCESS.
== END 2018-02-06 20:15 | disposition home or self-care (01) ==
LOC: EC 18:21
DX: R55 Syncope and collapse (principal); R42 Dizziness and giddiness; R61 Generalized hyperhidrosis; F17.210 Nicotine dependence, cigarettes, uncomplicated; K21.9 Gastro-esophageal reflux disease without esophagitis; I10 Essential (primary) hypertension; F17.200 Nicotine dependence, unspecified, uncomplicated; Z79.899 Other long term (current) drug therapy; Z88.5 Allergy status to narcotic agent
CPT/HCPCS: 36415; 71046; 80053; 82150; 82550; 82553; 83690; 83735; 83880; 84484; 85025; 85379; 85610; 85730; 93005; 99285; 99406

== ENCOUNTER → 2019-12-15 | Outpatient (CLI) | payer OTHER ==
[2019-12-15 18:55] LABS: Chol/HDL Ratio 5.58
== END | disposition home or self-care (01) ==
LOC: LABWHC1 10:32
PROVIDERS: ATTEND Internal Medicine Cardiovascular Disease
DX: E78.2 Mixed hyperlipidemia (principal)
CPT/HCPCS: 36415; 80061; 84450; 84460